=== PATIENT | male | born 1970 | race Two or more races ===

== ENCOUNTER 2019-01-24 00:13 | Emergency (ER) | payer SELFPAY ==
[~2019-01-24] VITALS: Ht 172.7 cm; Wt 97.8 kg
[~2019-01-24 00:13] MED LIST: HYDR-3720 PO; IBUP800T48 PO; NAPR-985 PO
[2019-01-24 00:15] VITALS: BP 137/85; PULSE 96; RESP 20; Ht 172.7 cm; Wt 97.8 kg
[2019-01-24] MEDS ORDERED: IBUPROFEN 800 MG TAB PO ONE (01:00)
== END 2019-01-24 02:03 | disposition home or self-care (01) ==
LOC: FTE 00:13
DX: S89.91XA Unspecified injury of right lower leg, initial encounter (principal); X50.1XXA Overexertion from prolonged static or awkward postures, initial encounter; Y92.810 Car as the place of occurrence of the external cause
CPT/HCPCS: 73562